=== PATIENT | female | born 1995 | race Caucasian/White ===

== ENCOUNTER → 2024-05-24 09:25 | Outpatient (CLI) | payer OTHER, SELFPAY ==
--- NOTE | 2024-05-24 09:26 | DI.US.S_ITS ---
LIMITED ULTRASOUND OF RIGHT BREAST: 05/24/2024 CLINICAL: Palpable right breast lump and focal pain. No prior exams were available for comparison. Color flow and real-time ultrasound of the right breast 11 o'clock region were performed. No sonographic abnormality is seen in the area of clinical concern in the right breast at 11 o'clock at a distance of 6 and 14 cm from the nipple. IMPRESSION: NEGATIVE No sonographic abnormality in the areas of clinical concern. No sonographic evidence of malignancy. Recommend routine screening mammogram starting at age 40. Clinical follow-up is also recommended, and further management of palpable abnormalities or other focal signs or symptoms should be based on the results of clinical evaluation. If palpable abnormality or other concerning symptom persists or progresses, further clinical evaluation should be considered. Findings and recommendations were conveyed to the patient during today's evaluation. This exam was interpreted at Station ID: [id number]. Electronically Signed By: Sushma Rosa M.D., Ph.D. eb/:05/24/2024 10:07:55 letter sent: Clinical Evaluation ACR BI-RADS Category 1: Negative
== END ==
PROVIDERS: PCP Registered Nurse Diabetes Educator; Referring Provider Physician Assistant; Visit Provider Physician Assistant
DX: N63.10 Unspecified lump in the right breast, unspecified quadrant (principal)
CPT/HCPCS: 76642

== ENCOUNTER → 2025-01-23 07:24 | Outpatient (CLI) | payer OTHER, SELFPAY | PROVIDERS: PCP Registered Nurse Diabetes Educator; Referring Provider Registered Nurse Diabetes Educator; Visit Provider Obstetrics & Gynecology | DX: Z00.00 Encounter for general adult medical examination without abnormal findings (principal); Z13.29 Encounter for screening for other suspected endocrine disorder | CPT/HCPCS: 36415; 84146 ==